=== PATIENT | female | born 1960 | race Caucasian/White ===

== ENCOUNTER → 2017-10-30 | Outpatient (CLI) | payer OTHER ==
[~2017-10-30] VITALS: Ht 160 cm; Wt 112.0 kg
[~2017-10-30] MED LIST: ALDACTONE25 MG PO; CALCIUM 600 +1 EAC1 PO; OMEPRAZOLE40 MG PO; RANITIDINE HCL300 MG PO; VITAMIN D1000 UNI1 PO; WELLBUTRIN SR150 MG PO
--- NOTE | ~2017-10-30 | O ---
[facility] [place] [address] OPERATIVE REPORT Name: SHELLY SALTER Kae Room #: REG [facility]#: [id number] Admission: 10/30/17 Attend Phys: Logan Rai MD, Discharge: Date of : 64 Report #: [id number] THIS REPORT FOR: //name// CC: MIKE physician/PCP Logan Rai DATE OF SERVICE: 10/30/2017 PREOPERATIVE DIAGNOSES: 1. Indwelling laparoscopic band. 2. Intermittent dysphagia. 3. Gastroesophageal reflux disease. 4. Morbid obesity with a body mass index of 43.68. POSTOPERATIVE DIAGNOSES: 1. Indwelling laparoscopic band. 2. Intermittent dysphagia. 3. Gastroesophageal reflux disease. 4. Morbid obesity with a body mass index of 43.68. 5. Malpositioned and slipping lap band. 6. Small hiatal hernia. PROCEDURE PERFORMED: A thorough esophagogastroduodenoscopy (EGD). SURGEON: Logan Rai M.D. COOK HELPER: None. ANESTHESIA: Monitored anesthesia care. ESTIMATED BLOOD LOSS: None. COMPLICATIONS: None. SPECIMENS: None. INDICATIONS: The patient is a 57-year-old morbidly obese female who underwent placement of a lap band in the past and initially had some weight loss, but has had significant weight regain as well as onset of intermittent dysphagia and severe GERD. The patient has undergone complete deflation of her lap band with no improvement in her symptoms and as she is undergoing evaluation for possible explantation with conversion to a sleeve gastrectomy, indication was for EGD today to ensure no erosion and to assess the placement of the lap band itself. DESCRIPTION OF PROCEDURE: After explaining the risks, benefits and alternatives [facility] [address] [place] [address] OPERATIVE REPORT Name: SHELLY SALTER Kae Room #: REG [facility].#: [id number] Admission: 10/30/17 Attend Phys: Logan Rai MD, Discharge: Date of : 64 Report #: [id number] of the procedure and obtaining consent, the patient was brought to the endoscopy suite supine on her hospital bed. After conducting a thorough timeout procedure verifying correct patient and procedure, the patient was given monitored anesthesia care and positioned in left lateral decubitus position. Once adequate anesthesia was obtained, the Fujinon upper endoscope was used to intubate the oropharynx, was traversed down into the esophagus with ease. The distal esophagus was quite tortuous, although I was able to navigate through the lap band into the gastric lumen where the pylorus was identified and intubated. The scope was advanced to the second portion of the duodenum where slow careful withdrawal of the EGD scope showed no evidence of duodenitis, mass lesions, or ulcerations. There was mild gastritis and esophagitis seen, but no evidence of Griggs's changes and there were a few small hyperplastic polyps seen within the gastric body. A retroflexion view of the scope within the gastric lumen showed abnormal positioning of the lap band right at the gastroesophageal juncture with no discernible gastric pouch cephalad to it. In addition, when the patient was lightened from anesthesia and allowed to have abdominal contractions, there was significant craniocaudal mobility of the lap band itself consistent with a slipping lap band. No erosion was seen, however. The scope was straightened out and withdrawn where we were able to see a small hiatal hernia, which was corroborated by the retroflexion view as well. The tortuous distal esophagus was likely secondary to her hiatal hernia. As there was no other pathology seen, the stomach was fully desufflated, the EGD scope was removed via the oropharynx, passed off the field completing the procedure. At the end of the procedure, all instruments, needle and sponge counts were correct. The patient tolerated the procedure without incident, was awakened in the endoscopy suite and transitioned to the recovery room in stable condition with no apparent complications. <ELECTRONICALLY SIGNED> By: Logan Rai MD, FACS 10/31/17 [id number] Logan Rai MD, FACS /nt
== END | disposition home or self-care (01) ==
LOC: GI 06:16
DX: E66.01 Morbid (severe) obesity due to excess calories (principal); K95.09 Other complications of gastric band procedure; K44.9 Diaphragmatic hernia without obstruction or gangrene; K21.9 Gastro-esophageal reflux disease without esophagitis; F32.89 Other specified depressive episodes; F41.8 Other specified anxiety disorders; Z68.41 Body mass index [BMI] 40.0-44.9, adult; Z87.891 Personal history of nicotine dependence; Z98.890 Other specified postprocedural states; Z88.2 Allergy status to sulfonamides; Z88.8 Allergy status to other drugs, medicaments and biological substances; Z79.899 Other long term (current) drug therapy
CPT/HCPCS: 62110; 62900

== ENCOUNTER → 2017-11-29 | Outpatient (CLI) | payer OTHER | LOC: RAD 16:19 | DX: Z01.818 Encounter for other preprocedural examination (principal); K21.9 Gastro-esophageal reflux disease without esophagitis; E66.01 Morbid (severe) obesity due to excess calories; Z98.84 Bariatric surgery status; Z68.41 Body mass index [BMI] 40.0-44.9, adult ==